=== PATIENT | female | born 1940 | race Caucasian/White ===

== ENCOUNTER 2022-08-20 16:26 | Emergency (ER) | payer MEDICARE, SELFPAY ==
[2022-08-20] VITALS (13 sets, daily range): BP systolic 170–197; BP diastolic 73–94; PULSE 73–83; RESP 10–18; O2SAT 98–100
--- NOTE | ~2022-08-20 | CT_ITS ---
EXAMINATION: CT brain wo con DATE: 08/20/2022 17:25 INDICATION: headache and hypertension . TECHNIQUE: Computed tomography (CT) of the head was performed without intravenous contrast. The mA wa s adjusted according to patient size. Iterative reconstruction technique was employed. The dose-lengt h product was 605.33 mGy-cm. COMPARISON: None FINDINGS: No acute intracranial hemorrhage or extra-axial fluid collection. No hydrocephalus, mass, or herniation. No acute ischemic infarct. Unremarkable dural venous sinus attenuation. No acute osseous abnormality. Small retention cyst or polyp in the right maxillary sinus, the remainingaerated spaces are clear. Moderate atrophy and mild chronic white matter change. Atherosclerotic intracranial calcification. Bi lateral old basal ganglia lacunar infarcts. Bilateral lens replacements. IMPRESSION: No acute intracranial process. Reviewed, dictated and finalized at location K. GER TELEMETRY
--- NOTE | 2022-08-20 16:33 | ECG_ITS ---
Measurements Intervals [place] Rate: 81 P: 37 TN: 174 QRS: 7 QRSD: 95 T: 26 QT: 363 QTc: 423 Interpretive Statements SINUS RHYTHM ANTEROSEPTAL INFARCT, AGE INDETERMINATE BASELINE ARTIFACT- III, AVF ABNORMAL ECG NO PREVIOUS ECG AVAILABLE FOR COMPARISON Electronically Signed On 08-21-2022 8:52:01 LOAN OPERATIONS SPECIALIST by Bill Barnett D.O.
[2022-08-20 16:47] LABS: Basophils Absolute Auto 0.1 K/mm3 (0.0-0.1); Basophils Percent Auto 0.5 % (0.2-1.2); Eosinophils Absolute Auto 0.2 K/mm3 (0-0.3); Eosinophils Percent Auto 1.4 % (0-4.4); Hematocrit 29.8 % (37.0-47.0); Hemoglobin 9.4 g/dL (12.0-15.0); Immature Granulocyte Absolute 0.04 K/mm3 (0.00-0.031); Immature Granulocyte Percent A 0.4 % (0-0.5); Lymphocytes Percent Auto 12.4 % (18.3-44.2); Mean Corpuscular HGB Conc 31.5 g/dl (32-36); Mean Corpuscular Hemoglobin 27.9 pg (26-34); Mean Corpuscular Volume 88.4 fl (80-100); Monocytes Absolute Auto 1.1 K/mm3 (0.1-0.6); Neutrophils Absolute Auto 8.5 K/mm3 (1.3-6.7); Neutrophils Percent Auto 75.3 % (45.5-73.1); Platelet Count Result 330 k/mm3 (150-375); Red Blood Count 3.37 M/mm3 (4.2-5.4); Red Cell Distribution Width 15.5 % (11.5-14.5); White Blood Count 11.3 K/mm3 (4.5-10.0)
[2022-08-20 16:58] LABS: Alanine Aminotransferase 16 U/L (6-35); Albumin Level 3.8 g/dL (3.5-5.1); Alkaline Phosphatase 104 U/L (38-126); Anion Gap 5 mmol/L (8-16); Aspartate Amino Transferase 25 U/L (14-36); Bilirubin,Total 0.2 mg/dL (0.2-1.3); Blood Urea Nitrogen 32 mg/dL (7-17); Calcium 9.2 mg/dL (8.4-10.2); Carbon Dioxide 29 mmol/L (22-30); Chloride 101 mmol/L (98-107); Estimated CRCL calculation 17 ml/min; Estimated Glomerular Filt Rate 27; Glucose 110 mg/dL (65-110); Potassium 3.9 mmol/L (3.4-5.0); Sodium 135 mmol/L (137-145)
--- NOTE | 2022-08-20 17:13 | ED.GENADULT ---
HPI - General Adult General Chief complaint: Recheck/Abnormal Lab/Rx Stated complaint: htn, out of BP meds x 1 week Time Seen by Provider: 08/20/22 16:42 History of Present Illness HPI narrative: 81-year-old female with past medical history of bipolar disorder and hypertension presents to our department for evaluation of a dull headache and high blood pressure. Patient states she ran out of her amlodipine 5 mg tablets 5 days prior to arrival and she is noticed her blood pressure has been elevated. Throughout the day today she is felt a dull headache. No other neuro symptoms and she refilled her amlodipine just prior to arrival and took a single tablet. Related Data Allergies Allergy/AdvReac Type Severity Reaction Status Date / Time Penicillins Allergy Unknown Verified 08/20/22 17:14 Review of Systems Review of Systems: CONSTITUTIONAL: Denies fever, chills, or sweats. EYES: Denies visual changes, redness, or discharge. ENT: Denies rhinorrhea, congestion, sore throat, or otalgia. CARDIOVASCULAR: Denies chest pain, palpitations, or edema. RESPIRATORY: Denies cough or dyspnea. GASTROINTESTINAL: Denies abdominal pain, nausea, vomiting, or diarrhea. GENITOURINARY: Denies dysuria or hematuria. SKIN: Denies rash or itching. MUSCULOSKELETAL: Denies back pain, joint pain, or myalgia. NEUROLOGIC: Denies headache, numbness, or weakness. PSYCHIATRIC: Denies anxiety or depression. Exam Narrative: GENERAL: Well-appearing, well-nourished, and in no acute distress. HEAD: Normocephalic, atraumatic. EYES: PERRLA and EOMI. ENT: Nares clear, no rhinorrhea or epistaxis. Mucous membranes moist. NECK: Supple. CHEST: Clear to auscultation. No respiratory distress. HEART: Regular rate and rhythm. No murmur heard. Normal peripheral pulses. ABDOMEN: Soft, nontender, nondistended, normal active bowel sounds. EXTREMITIES: Normal range of motion. No edema. SKIN: Warm, dry, no rash. NEURO: No focal deficits. Alert and oriented x3. APPEARANCE: No acute distress, nontoxic, resting in bed HEENT: Normocephalic, atraumatic, OMM, TMs clear bilaterally EYES: PERRL, EOMI NECK: Supple, nontender, full range of motion without pain, no meningismus RESPIRATORY: No respiratory distress, clear to auscultation bilaterally with no rhonchi wheezing or rales CARDIOVASCULAR: RRR s murmur ABDOMINAL: Soft, nontender, nondistended MUSCULOSKELETAL: Moves all extremities. No clubbing, cyanosis or edema. NEURO: A and O ?3, following commands, speech normal, cranial nerves II through XII grossly intact,muscle strength 5 out of 5 bilateral upper and lower extremities SKIN:: Warm, dry. Normal Color PSYCHIATRIC: Normal affect/mood PSYCH: Normal mood and affect. Course Vital Signs Vital signs: Vital Signs Pulse Rate 83 08/20/22 16:30 Respiratory Rate 18 08/20/22 16:30 Blood Pressure 176/94 H 08/20/22 16:30 Pulse Oximetry 99 08/20/22 16:30 Oxygen Delivery Room Air 08/20/22 16:30 Pulse Rate 76 08/20/22 17:45 Respiratory Rate 10 L 08/20/22 17:45 Blood Pressure 170/73 H 08/20/22 17:45 Pulse Oximetry 99 08/20/22 17:45 Oxygen Delivery Room Air 08/20/22 16:30 Medical Decision Making MDM Narrative Medical decision making narrative: CT head with no acute abnormalities. Patient is neuro intact. Blood pressure is minimally elevated but not even close to a level which would warrant an emergency medical treatment. This is an asymptomatic hypertension. Daughter is at bedside and they agreed to keep a blood pressure log and talk to primary care doctor about a new prescription. Patient is stable for discharge home. Vital Signs Vital Signs: Vital Signs Pulse Rate 83 08/20/22 16:30 Respiratory Rate 18 08/20/22 16:30 Blood Pressure 176/94 H 08/20/22 16:30 Pulse Oximetry 99 08/20/22 16:30 Oxygen Delivery Room Air 08/20/22 16:30 Pulse Rate 76 08/20/22 17:45 Respiratory Rate 10 L 08/20/22 17:45 Blood Pressure 170/73 H 08/20
== END 2022-08-20 18:41 ==
PROVIDERS: Emergency Provider Emergency Medicine
DX: I10 Essential (primary) hypertension (principal)
CPT/HCPCS: 36415; 70450; 80053; 85025; 93005; 96374; 99284; J0131

== ENCOUNTER 2022-09-19 12:16 | Observation (INO) | payer MEDICARE, SELFPAY ==
[2022-09-19] VITALS (9 sets, daily range): BP systolic 141–162; BP diastolic 51–76; PULSE 79–98; RESP 13–21; TEMP 36.5–37.5; O2SAT 94–100; BMI 22.3
--- NOTE | ~2022-09-19 | US_ITS ---
EXAMINATION: US carotid duplex BI DATE: 09/20/2022 00:36 INDICATION: Syncope. TECHNIQUE: Grayscale, color Doppler, and pulsed Doppler images of the cervical carotid arteries were obtained. The degree of vessel stenosis is placed in one of the following categories: normal, <50%, 5 0-69%, >=70% but less than near-occlusion, near-occlusion, or total occlusion. Note that percent sten osis relative to normal distal artery lumen diameter is indirectly measured from velocity measurement s as described by Zeke, et al. Radiology 2003; 229:340-346. COMPARISON: None. FINDINGS: RIGHT: The right common carotid artery (CCA) peak systolic velocity (PSV) is 122 cm/s. The right internal ca rotid artery (ICA) PSV is 145 cm/s. The right ICA end-diastolic velocity (EDV) is 28 cm/s. The right ICA/CCA PSV ratio is 1.2. Grayscale and color Doppler images yield an estimate of <50% diameter reduc tion from plaque in the ICA. There is antegrade flow in the right vertebral artery. LEFT: The left CCA PSV is 146 cm/s. The left ICA PSV is 126 cm/s. The left ICA EDV is 18 cm/s. The left ICA /CCA PSV ratio is 0.9. Grayscale and color Doppler images yield an estimate of <50% diameter reductio n from plaque in the ICA. There is antegrade flow in the left vertebral artery. IMPRESSION: 1. <50% stenosis in the right internal carotid artery. 2. <50% stenosis in the left internal carotid artery. Reviewed, dictated and finalized at location A. L LOADER
--- NOTE | ~2022-09-19 | XR_ITS ---
EXAMINATION: XR chest 1V DATE: 09/19/2022 12:43 INDICATION: Weakness and syncope TECHNIQUE: frontal view of the chest was obtained. COMPARISON: None FINDINGS: Calcified nodules in the left lower lung zone and calcified left hilar lymph nodes consistent with ol d granulomatous disease. Mild streaky bibasilar atelectasis. No linear opacity right costophrenic ang le appear to extend across the more lateral soft tissues consistent with material external to the pat ient. No pulmonary edema, pleural effusion or pneumothorax. The cardiomediastinal silhouette is katie l. Moderate thoracic dextroscoliosis with severe spondylosis. 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 IMPRESSION: 1. Mild streaky bibasilar atelectasis. Reviewed, dictated and finalized at location B. DIRECTOR
--- NOTE | ~2022-09-19 | CT_ITS ---
CT head without contrast Indication: Syncope COMPARISON: 08/20/2022 Technique: Serial scans were obtained through the brain without the administration of contrast. Dose reduction technique was used on this scan by utilizing automated exposure control and iterative recon struction technique. The dose-length product (DLP) was 605.33 mGy-cm. Findings: There is no evidence of intracranial hemorrhage, mass lesion, or acute infarct. The ventri cles and subarachnoid spaces are dilated, consistent with mild to moderate atrophy. There is no evid ence of edema, mass effect or midline shift. The visualized paranasal sinuses and mastoid air cells are clear. Impression: No intracranial hemorrhage, mass, or acute infarct. Mild to moderate generalized atrophy. Reviewed, dictated and finalized at location . SPRINKLER SERVICER Impression: No intracranial hemorrhage, mass, or acute infarct. Mild to moderate generalized atrophy.
--- NOTE | ~2022-09-19 | US_ITS ---
EXAMINATION: US renal BI DATE: 09/20/2022 00:36 INDICATION: Acute renal failure. TECHNIQUE: Multiple ultrasound grayscale images of the kidneys were obtained. COMPARISON: None. FINDINGS: The right kidney measures 9.9 x 5.1 x 6.3 cm. The left kidney measures 9.0 x 5.0 x 5.2 cm. The kidney s demonstrate normal parenchymal echogenicity. There are cysts in the kidneys measuring up to 5.4 cm on the left. There is no hydronephrosis. The bladder is normal. IMPRESSION: 1. Normal kidney sizes. No hydronephrosis. Reviewed, dictated and finalized at location A. ROLLER MECHANIC
--- NOTE | 2022-09-19 12:22 | ECG_ITS ---
Measurements Intervals [place] Rate: 78 P: 42 [place]: 196 QRS: 41 QRSD: 80 T: 45 QT: 354 QTc: 405 Interpretive Statements SINUS RHYTHM ANTEROSEPTAL MYOCARDIAL INFARCTION , OF INDETERMINATE AGE [40+ ms Q WAVE IN V1-V4] ABNORMAL ECG COMPARED TO ECG 08/20/2022 16:34:14 NO SIGNIFICANT CHANGES Electronically Signed On 09-19-2022 13:43:33 CLOTH BIN PACKER by Neil Salomon M.D.
--- NOTE | 2022-09-19 12:23 | ED.GENADULT ---
HPI - General Adult General Chief complaint: Syncope Stated complaint: SYNCOPAL Time Seen by Provider: 09/19/22 12:19 Source: RN notes reviewed History of Present Illness HPI narrative: Patient presents emergency department from assisted living via EMS for a syncopal episode. Patient was sitting eating lunch when she had a syncopal episode unknown how long she was out for. Patient states she had no preceding dizziness or feeling hot. She states that she has been feeling weak for the past few days and spent the majority of the day yesterday sleeping and she denies any chest pain or shortness of breath denies any abdominal pain nausea vomiting diarrhea or any other symptoms. States she has had a history of syncopal episodes in the past but is never had a formal work-up or diagnosis Related Data Home Medications Medication Instructions Recorded Confirmed amlodipine 5 mg tablet mg 09/19/22 09/19/22 desvenlafaxine succinate 50 mg mg PO 09/19/22 tablet,extended release 24 hr famotidine 20 mg tablet mg 09/19/22 solifenacin 5 mg tablet mg PO 09/19/22 trazodone 100 mg tablet mg 09/19/22 Allergies Allergy/AdvReac Type Severity Reaction Status Date / Time Penicillins Allergy Unknown Verified 09/19/22 12:21 Review of Systems Review of Systems: Gen.: Denies fevers or chills Eyes: Denies eye pain or visual change ENT: Denies congestion Respiratory: Denies shortness of breath or cough CV: Denies chest pain or palpitations reports syncope GI: Denies abdominal pain nausea, emesis or diarrhea Musculoskeletal: Denies back pain or muscle pain Neuro: Denies numbness, tingling, weakness or focal weakness Skin: Denies rash Except as documented, all other systems reviewed and negative REPLACED BY [facility] Past Medical History Medical History (Updated 09/19/22 @ 14:38 by Florentino Cormier DO) Hypertension Social History Social History (Updated 09/19/22 @ 12:24 by Florentino Cormier DO) Smoking status: Never smoker Exam Narrative: APPEARANCE: No acute distress, nontoxic, resting in bed EYES: EOMI HEENT: Normocephalic, atraumatic, OMM RESPIRATORY: No respiratory distress Clear to auscultation bilaterally with no rhonchi wheezing or rales. CARDIOVASCULAR: Regular rate and rhythm without murmurs rubs or gallops. ABDOMINAL: Soft, nontender, nondistended, no rebound or guarding Rectal: No fissures no active bleeding light brown stool present that is Hemoccult negative MUSCULOSKELETAl: Moves all extremities. No clubbing, cyanosis or edema. NEURO: Awake and alert x 4. Following commands, speech normal, no focal deficits SKIN:: Warm, dry. No rashes lesions or abrasions PSYCHIATRIC: Normal affect/mood, Course Course Emergency Course: Discussed with ANNALISE Hernandez for Dr. Jackson agrees with admission Discussed with patient and family results of workup and diagnosis. Discussed need for admission. Patient and family understand and agree to current treatment plan Vital Signs Vital signs: Vital Signs Temperature 97.7 F 09/19/22 12:03 Pulse Rate 79 09/19/22 12:03 Respiratory Rate 16 09/19/22 12:03 Blood Pressure 141/57 H 09/19/22 12:03 Pulse Oximetry 98 09/19/22 12:03 Oxygen Delivery Room Air 09/19/22 12:03 Temperature 97.7 F 09/19/22 12:03 Pulse Rate 79 09/19/22 12:03 Respiratory Rate 16 09/19/22 12:03 Blood Pressure 141/57 H 09/19/22 12:03 Pulse Oximetry 98 09/19/22 12:03 Oxygen Delivery Room Air 09/19/22 12:03 Medical Decision Making Vital Signs Vital Signs: Vital Signs Temperature 97.7 F 09/19/22 12:03 Pulse Rate 79 09/19/22 12:03 Respiratory Rate 16 09/19/22 12:03 Blood Pressure 141/57 H 09/19/22 12:03 Pulse Oximetry 98 09/19/22 12:03 Oxygen Delivery Room Air 09/19/22 12:03 Temperature 97.7 F 09/19/22 12:03 Pulse Rate 79 09/19/22 12:03 Respiratory Rate 16 09/19/22 12:03 Blood Pressure 141/57 H 09/19/22 12:03 Pulse Oximetry 98 09/19/22 12:03
[2022-09-19 12:58] LABS: Basophils Absolute Auto 0.1 K/mm3 (0.0-0.1); Basophils Percent Auto 0.6 % (0.2-1.2); Eosinophils Absolute Auto 0.1 K/mm3 (0-0.3); Eosinophils Percent Auto 0.7 % (0-4.4); Hematocrit 24.5 % (37.0-47.0); Hemoglobin 7.8 g/dL (12.0-15.0); Immature Granulocyte Absolute 0.07 K/mm3 (0.00-0.031); Immature Granulocyte Percent A 0.5 % (0-0.5); Lymphocytes Absolute Auto 0.72 K/mm3 (0.9-3.2); Lymphocytes Percent Auto 5.6 % (18.3-44.2); Mean Corpuscular HGB Conc 31.8 g/dl (32-36); Mean Corpuscular Volume 84.8 fl (80-100); Mean Platelet Volume 8.8 fl (7.4-10.4); Monocytes Percent Auto 7.4 % (2.6-8.5); Neutrophils Percent Auto 85.2 % (45.5-73.1); Platelet Count Result 280 k/mm3 (150-375); Red Blood Count 2.89 M/mm3 (4.2-5.4); Red Cell Distribution Width 16.5 % (11.5-14.5); White Blood Count 12.9 K/mm3 (4.5-10.0)
[2022-09-19 13:06] LABS: Alanine Aminotransferase 20 U/L (6-35); Albumin Level 3.6 g/dL (3.5-5.1); Alkaline Phosphatase 78 U/L (38-126); Anion Gap 8 mmol/L (8-16); Aspartate Amino Transferase 24 U/L (14-36); Bilirubin,Total 0.4 mg/dL (0.2-1.3); Blood Urea Nitrogen 27 mg/dL (7-17); Carbon Dioxide 23 mmol/L (22-30); Chloride 104 mmol/L (98-107); Estimated CRCL calculation 14 ml/min; Estimated Glomerular Filt Rate 24; Glucose 132 mg/dL (65-110); Potassium 3.7 mmol/L (3.4-5.0); Sodium 135 mmol/L (137-145)
[2022-09-19 13:10] LABS: INR 1.1; Partial Thromboplastin Time 23.9 SECONDS (22.3-36.8); Prothrombin Time 13.6 Seconds (11.1-14.7)
[2022-09-19 13:18] LABS: NT Pro B Type Natriuretic Pept 520 pg/mL (5-100); Troponin I < 0.012 ng/mL (0.000-0.034)
[2022-09-19 13:34] LABS: Influenza A QL RT-PCR Negative (Negative); Influenza B QL RT-PCR Negative (Negative); SARS-CoV-2 RNA PCR Negative
[2022-09-19 14:12] LABS: Add Urine Microscopic? YES; Appearance Urine Clear (Clear); Bilirubin Urine Negative (Negative); Blood Urine Trace-Intact (Negative); Color Urine Light Yellow (Yellow); Glucose Urine UA Negative (Negative); Ketones Urine Negative (Negative); Leukocyte Esterase Ur Negative LEU/UL (Negative); Nitrate Urine Negative (Negative); Protein Urine 1+ mg/dL (Negative); Urobilinogen Urine 0.2 mg/dL (<2.0)
[2022-09-19 14:15] LABS: Bacteria Urine Trace /hpf; Mucus Urine Rare /lpf; RBC Urine 0-2 /hpf (0-2); Squamous Epithelial Cell Urine Rare /hpf (Few); WBC Urine 0-3 /hpf
[2022-09-19 18:05] LABS: Troponin I < 0.012 ng/mL (0.000-0.034)
--- NOTE | 2022-09-19 18:42 | PM.IMHP ---
H&P: HPI History of Present Illness Date/Time: 09/19/22 18:42 Chief Complaint: Syncope Narrative: This is an 81-year-old female patient who resides in computer assistant living. The patient was brought to the emergency room for syncopal episode. The patient stated she was eating lunch and she had a syncopal episode and was unsure how long she had been out. The patient had no dizziness or feeling of diaphoresis. She has been feeling weak for the last 2 days and has been sleeping quite frequently. She denies any shortness of breath. Initial H&H was 7.8 and 24.5. Repeat H&H is 8.2 in 25.8. Sodium is slightly low at 135. Her creatinine is 2.0 with a previous value last month at 1.8. She has had 3 nonreactive troponins. She is negative for influenza A/B and COVID. The patient is very hard of hearing. The patient stated that she recently had ear infections and has taken her hearing aids out. Chest x-ray was read as mild streaking bibasilar atelectasis. Head CT was read as no intracranial hemorrhage mass or acute infarct mild to moderate generalized atrophy. The patient was given Tylenol in the emergency room. The patient is being admitted to observation status on the date of service of 09/19/2022 Review of Systems Review of Systems: See HPI All systems reviewed & are unremarkable except as noted in HPI and below Constitutional: Constitutional: Reports as per HPI and Reports no additional constitutional complaints Eyes: Eyes: Reports as per HPI and Reports no additional eye complaints ENT: Reports system reviewed and no additional complaints, except as documented and Reports Normal hearing present Cardiovascular: Cardiovascular: Reports no additional cardiovascular complaints Respiratory: Respiratory: Reports no additional respiratory complaints and Reports no additional respiratory complaints Gastrointestinal: Gastrointestinal: Reports as per HPI and Reports no additional gastrointestinal complaints Musculoskeletal: Musculoskeletal: Reports no additional musculoskeletal complaints Integumentary/Breasts: Skin/Breast: Reports system reviewed and no additional complaints, except as docu and Reports as per HPI Neurologic: Reports system reviewed and no additional complaints, except as documented, Reports as per HPI and Reports Normal hearing present Psychiatric: Psychiatric: Reports no additional psychiatric complaints and Reports as per HPI Endocrine: Endocrine: Reports no additional endocrine complaints Hematologic/Lymphatic: Hematologic/Lymphatic: Reports no additional hematologic/lymphatic complaints Allergic/Immunologic: Allergic/Immunologic: Reports no additional allergic/immunologic complaints PMFSH Past Medical History Medical History Breast cancer Chronic GERD Depression H/O benign gastric tumor Hypertension Surgical History Surgical History H/O breast biopsy H/O cataract extraction H/O lumpectomy History of removal of pigmented skin lesion Family History Family History Father Lung cancer, lingula Mother Cerebrovascular accident Sibling Cancer Social History Social History (Updated 09/19/22 @ 23:09 by Mary Hernadez NP) Social History: The patient is and she has 3 children. She is retired from being a teacher. She is a lifelong nonsmoker. She does not use any marijuana alcohol or illicit drugs. Her son Charles is the durable power prosecuting attorney for healthcare. Code status full code Smoking status: Never smoker Meds Home Medications and Allergies Home Medications Medication Instructions Recorded Confirmed Type amlodipine 5 mg tablet mg 09/19/22 09/19/22 History cod liver oil 2 cap PO DAILY 09/19/22 09/19/22 History cyclosporine 1 drp EACH EYE BID 09/19/22 09/19/22 History desvenlafaxine succinate 50 mg mg PO 08/30
--- NOTE | 2022-09-19 19:25 | PC.NURSE ---
This patient, Cici Huber, was admitted to [facility] Surg Room 317-01. Patient/family oriented to hospital policies and general routines including ID bracelet, bed and alarms, visiting hours, pain management, procedures, bathroom and other care routines, personal items, smoking policy, room service/diet, and visiting hours. Information on how to activate the Rapid Response Team has been discussed. Patient/Family are encouraged to report perceived risks to care and to ask questions if they do not understand what they are told or what they should do. arrived at 1926
[2022-09-19 20:29] LABS: Hematocrit 25.8 % (37.0-47.0); Hemoglobin 8.2 g/dL (12.0-15.0)
[2022-09-19 20:51] LABS: Troponin I 0.012 ng/mL (0.000-0.034)
--- NOTE | 2022-09-19 22:15 | PC.NURSE ---
pt has medication list, unsure if correct or up-to-date, called VIVIENJamaal Soto son no answer, pt states he wouldn't know her medication either, called [facility] to fax medication list, [phone] awaiting return fax to confirm pt medication.
--- NOTE | 2022-09-19 23:13 | PC.NURSE ---
fax received from [facility], medication entered, CONSTRUCTION ENGINEER Maricarmen hutchison working on medications, and update about elevated temp 99.5 PO fluids encouraged tylenol 650mg po ordered q4h
[2022-09-19] MEDS: ACETAMINOPHEN 325 MG TABLET 650 MG PO (23:15)
[2022-09-19] MEDS: SODIUM CHLORIDE 0.9% IV 1,000 ML 100 ML IV CONT (23:41)
--- NOTE | 2022-09-20 00:09 | PC.NURSE ---
informed Mary Walter pt doesn't want any more testing, and refusing IV fluids, stating wants to leave [facility].
[2022-09-20 05:03] VITALS: BP 141/59; PULSE 80; RESP 14; TEMP 36.6; O2SAT 94
--- NOTE | 2022-09-20 06:49 | PC.NURSE ---
pt up to restroom did have bm, in toilet unable to collect for occult stool, occult still needs collected.
--- NOTE | 2022-09-20 08:28 | PM.DS ---
DS: Admitting Diagnosis Discharge Date 09/20/2022 Admitting Diagnosis syncope DS: Discharge Diagnosis Discharge Diagnosis Plan Syncope DS: Summary Hospital Course Reason for hospitalization: Syncopal episode Hospital Course: Please refer to admission H& P. Briefly, this is an 81-year-old female patient who resides in [facility] assistant living.? The patient was brought to the emergency room for syncopal episode.? The patient stated she was eating lunch and she had a syncopal episode and was unsure how long she had been out.? The patient had no dizziness or feeling of diaphoresis.? She has been feeling weak for the last 2 days and has been sleeping quite frequently.? She denies any shortness of breath.? Initial H&H was 7.8 and 24.5.? Repeat H&H is 8.2 in 25.8.? Sodium is slightly low at 135.? Her creatinine is 2.0 with a previous value last month at 1.8.? She has had 3 nonreactive troponins.? She is negative for influenza A/B and COVID.? The patient is very hard of hearing.? The patient stated that she recently had ear infections and has taken her hearing aids out.? Chest x-ray was read as mild streaking bibasilar atelectasis.? Head CT was read as no intracranial hemorrhage mass or acute infarct mild to moderate generalized atrophy.? The patient was given Tylenol in the emergency room.? The patient was admitted to observation status on the date of service of 09/19/2022 The patient left AMA on 09/20/2022. Status at Discharge Cognitive/behavioral status at discharge: Awake alert oriented x3. Time Spent with Patient Time attestation: Total time spent providing and/or coordinating discharge services:10 min. Time spent: Less than 30 minutes DS: Data Data Completed and Pending Labs on day of discharge: Labs from last 24 hours 09/19/22 09/19/22 09/19/22 20:24 20:24 17:29 WBC RBC Hgb 8.2 L Hct 25.8 L MCV MCH MCHC RDW Plt Count MPV Immature Gran % (Auto) Neut % (Auto) Lymph % (Auto) Todd % (Auto) Eos % (Auto) Baso % (Auto) Lymph # (Auto) Todd # (Auto) Eos # (Auto) Baso # (Auto) Abs Immat Gran (auto) Absolute Neuts (auto) Absolute Nucleated RBC Nucleated RBC % PT INR APTT Sodium Potassium Chloride Carbon Dioxide Anion Gap BUN Creatinine Estim Creat Clear Calc Estimated GFR Glucose Calcium Total Bilirubin AST ALT Alkaline Phosphatase Troponin I 0.012 < 0.012 NT-Pro-B Natriuret Pep Total Protein Albumin Urine Color Urine Appearance Urine pH Ur Specific [place] Urine Protein Urine Glucose (UA) Urine Ketones Ur Blood (Man) Urine Nitrate Urine Bilirubin Urine Urobilinogen Leukocyte Esterase Rfl Urine RBC Urine WBC Ur Squamous Epith Cells Urine Bacteria Hyaline Casts Urine Mucus Influenza A (RT-PCR) Influenza B (RT-PCR) SARS-CoV-2 RNA (RT-PCR) 09/19/22 09/19/22 09/19/22 13:59 12:50 12:50 WBC RBC Hgb Hct MCV MCH MCHC RDW Plt Count MPV Immature Gran % (Auto) Neut % (Auto) Lymph % (Auto) Todd % (Auto) Eos % (Auto) Baso % (Auto) Lymph # (Auto) Todd # (Auto) Eos # (Auto) Baso # (Auto) Abs Immat Gran (auto) Absolute Neuts (auto) Absolute Nucleated RBC Nucleated RBC % PT 13.6 INR 1.1 APTT 23.9 Sodium 135 L Potassium 3.7 Chloride 104 Carbon Dioxide 23 Anion Gap 8 BUN 27 H Creatinine 2.00 H Estim Creat Clear Calc 14 Estimated GFR 24 L Glucose 132 H Calcium 9.0 Total Bilirubin 0.4 AST 24 ALT 20 Alkaline Phosphatase 78 Troponin I < 0.012 NT-Pro-B Natriuret Pep 520 H Total Protein 7.0 Albumin 3.6 Urine Color Light yellow Urine Appearance Clear Urine pH 6.0 Ur Specific [place] 1.010 Urine Protein 1+ H Urine Glucose (UA) Negative U
--- NOTE | 2022-09-20 09:23 | PC.NURSE ---
pt was calling conference manager light. upon entering room pt had no fluids running, states she did not want them. pt is stating her son is on the way and she is leaving. educated pt on leaving [facility]. phone call made to provider, son called and facility notified. pt refusing meds.
== END 2022-09-20 10:00 | disposition left against medical advice (07) ==
LOC: ANHED 14:38 → ANH3MEDSUR 09-20 08:17
PROVIDERS: Admitting Provider Student in an Organized Health Care Education/Training Program; Emergency Provider Emergency Medicine; Visit Provider Internal Medicine
DX: R55 Syncope and collapse (principal); R53.1 Weakness; G31.9 Degenerative disease of nervous system, unspecified; D64.9 Anemia, unspecified; I12.9 Hypertensive chronic kidney disease with stage 1 through stage 4 chronic kidney disease, or unspecified chronic kidney disease; N18.9 Chronic kidney disease, unspecified; C50.919 Malignant neoplasm of unspecified site of unspecified female breast; R60.0 Localized edema; R94.31 Abnormal electrocardiogram [ECG] [EKG]; K21.9 Gastro-esophageal reflux disease without esophagitis; F32.A Depression, unspecified; R79.89 Other specified abnormal findings of blood chemistry; Z20.822 Contact with and (suspected) exposure to COVID-19; J98.11 Atelectasis; Z79.899 Other long term (current) drug therapy
CPT/HCPCS: 36415; 70450; 71045; 76775; 80053; 81001; 83880; 84484; 85014; 85018; 85025; 85610; 85730; 87636; 93005; 93880; 99285; A9270; G0378; J7030